=== PATIENT | male | born 1985 | race Caucasian/White ===

== ENCOUNTER 2017-01-21 13:33 | Emergency (ER) | payer OTHER ==
[2017-01-21 13:50] VITALS: BP 139/95
[2017-01-21] MEDS ORDERED: Iohexol 647 MG/ML 10 ML SDV PO SCH (14:15)
--- NOTE | 2017-01-21 14:36 | EDM.PDOC ---
[id number]: LEFT LOWER ABDOMINAL PAIN Time Seen by Provider: 01/21/17 14:00 Source of Information: Reports: Patient, Family History Limitations: Reports: No Limitations - History of Present Illness INITIAL COMMENTS - FREE TEXT/NARRATIVE: 31-year-old male with persistent and worsening waxing and waning left lower quadrant pain for the past 2 months. Today he was walking and was getting some cramping sensation, became lightheaded and diaphoretic. No fevers or chills, falls or moving normally, no nausea or vomiting. Last year he had a workup for persistent upper abdominal pain and was supposed to get an EGD and colonoscopy but his insurance changed and he never went through with the exams. He has apparent indication and his symptoms became bad enough that his insisted he get checked and he also became scared. Onset: Gradual Duration: Chronic (Over 2 months recurring left lower quadrant pain) Location: Reports: Abdomen Quality: Reports: Other (Intermittent cramping) Severity: Moderate Improves with: Reports: Other (Does not bother him at night) Associated Symptoms: Reports: Diaphoresis. Denies: Fever/Chills, Loss of Appetite, Nausea/Vomiting, Shortness of Breath Left Lower Abdominal Pain Score (Numeric/FACES): 5 - Related Data Allergies Allergy/AdvReac Type Severity Reaction Status Date / Time No Known Allergies Allergy Verified 01/21/17 13:51 Home Meds: Home Meds NK [No Known Home Meds] 01/21/17 [History] Past Medical History Gastrointestinal History: Reports: GERD Social & Family History - Tobacco Use Smoking Status *Q: Former Smoker Used Tobacco, but Quit: Yes Month Tobacco Last Used: 2 - Caffeine Use Caffeine Use: Reports: Coffee - Recreational Drug Use Recreational Drug Use: No ED ROS GENERAL - Review of Systems Review Of Systems: See Below Constitutional: Denies: Fever, Chills, Malaise HEENT: Reports: No Symptoms Respiratory: Denies: Shortness of Breath Cardiovascular: Denies: Chest Pain, Palpitations GI/Abdominal: Reports: Abdominal Pain. Denies: Nausea, Vomiting Skin: Reports: Diaphoresis Neurological: Reports: Dizziness ED EXAM, GI/ABD - Physical Exam Exam: See Below Exam Limited By: No Limitations General Appearance: Alert, No Apparent Distress Eyes: Bilateral: Normal Appearance (No jaundice) Respiratory/Chest: No Respiratory Distress, Lungs Clear Cardiovascular: Regular Rate, Rhythm GI/Abdominal: Soft, Tenderness (Patient does have significant palpation tenderness across the lower abdomen, particularly on the left side with some guarding) Extremities: Normal Inspection Neurological: Alert, Oriented Course - Vital Signs Last Recorded V/S: Last Vital Signs Temp 97.5 F 01/21/17 13:52 Pulse 66 01/21/17 13:52 Resp 16 01/21/17 13:52 BP 139/95 H 01/21/17 13:52 Pulse Ox 97 01/21/17 13:52 - Orders/Labs/Meds Orders: Active Orders 24 hr Category Date Time Status Abdomen Pelvis w Cont [CT] Stat Exams 01/21/17 14:13 Taken Labs: Laboratory Tests 01/21/17 01/21/17 Range/Units 14:13 14:13 WBC 8.2 (4.5-11.0) K/uL RBC 5.12 (4.30-5.90) M/uL Hgb 15.5 H (12.0-15.0) g/dL Hct 43.9 (40.0-54.0) % MCV 86 (80-98) fL MCH 30 (27-31) pg MCHC 35 (32-36) % Plt Count 189 (150-400) K/uL Neut % (Auto) 68 H (36-66) % Lymph % (Auto) 20 L (24-44) % [place] % (Auto) 9 H (2-6) % Eos % (Auto) 2 (2-4) % Baso % (Auto) 1 (0-1) % ESR 3 (0-20) mm/hr Sodium 141 (140-148) mmol/L Potassium 3.9 (3.6-5.2) mmol/L Chloride 105 (100-108) mmol/L Carbon Dioxide 28 (21-32) mmol/L Anion Gap 8.0 (5.0-14.0) mmol/L BUN 11 (7-18) mg/dL Creatinine 1.1 (0.8-1.3) mg/dL Est Cr Clr Drug Dosing 101.73 mL/min Estimated GFR (MDRD) > 60 (>60) Glucose 95 (74-106) mg/dL Calcium 8.9 (8.5-10.1) mg/dL Total Bilirubin 0.5 (0.2-1.0) mg/dL AST 32 (15-37) U/L ALT 61 (12-78) U/L Alkaline Phosphatase 101 (46-116) U/L Total Protein 7.2 (6.4-8.2) g/dL Albumin 3.9 (3.4-5.0) g/dL Globulin 3.3 (2.3-3.5) g/dL Albumin/Globulin Ratio 1.2 (1.2-2.2) Meds: Medications Discontinued Medications Generic Name Dose Route Start Last Admin Trade Name Freq PRN Reason Stop Dose Admin Sodium Chloride 80 mls @ 3 mls/sec 01/21/17 15:30 01/21/17 16:05 Normal Saline IV 3 mls/sec ASDIRECTED LEOLA Administration Iohexol 10 ml 01/21/17 14:15 01/21/17 14:29 Omnipaque-300 PO 10 ml . DIRECTED LELOA Administration Iopamidol 150 ml 01/21/17 15:30 01/21/17 16:05 Isovue-300 (61%) IV 150 ml . DIRECTED LEOLA Administration Sodium Chloride 10 ml 01/21/17 15:16 01/21/17 16:05 Saline Flush FLUSH 10 ml ASDIRECTED PRN Administration Keep Vein Open - Re-Assessments/Exams Free Text/Narrative Re-Assessment/Exam: 01/21/17 14:36 CBC CMP and sedimentation rate were obtained. I had the patient start drinking contrast with the intention of an abdomen and pelvis CT scan with oral and IV contrast. 01/21/17 16:05 CBC and CMP are normal, sedimentation rate is 3. Patient was sent for the CT of the abdomen and pelvis with IV and oral contrast. 01/21/17 16:53 CT scan was completely normal. All copies of everything was given to the patient and he can follow-up when home. Departure - Departure Time of Disposition: 17:02 Disposition: Home, Self-Care 01 Condition: Good Clinical Impression: Abdominal pain Qualifiers: Abdominal location: left lower quadrant Qualified Code(s): R10.32 - Left lower quadrant pain Acid reflux Qualifiers: Esophagitis presence: esophagitis presence not specified Qualified Code(s): K21.9 - Gastro-esophageal reflux disease without esophagitis - Discharge Information Instructions: Abdominal Pain, Adult Referrals: PCP,None [Primary Care Provider] - Forms: ED Department Discharge Care Plan Goals: Consider taking Prilosec daily as discussed. Recheck when home if symptoms aren' t improving satisfactorily. - My Orders Last 24 Hours: My Active Orders 01/21/17 14:13 Abdomen Pelvis w Cont [CT] Stat - Assessment/Plan Last 24 Hours: My Active Orders 01/21/17 14:13 Abdomen Pelvis w Cont [CT] Stat
[2017-01-21] MEDS ORDERED: Sodium Chloride 0.9% 10 ML Syringe FLUSH PRN (15:16)
[2017-01-21] MEDS ORDERED: Sodium Chloride 0.9% 80 ML IV SCH (15:30)
[2017-01-21] MEDS ORDERED: Iopamidol 612 MG/ML 150 ML Bottle IV SCH (15:30)
== END 2017-01-21 17:02 | disposition home or self-care (01) ==
LOC: JP.ED 13:33
DX: K21.9 Gastro-esophageal reflux disease without esophagitis (principal); Z87.891 Personal history of nicotine dependence
CPT/HCPCS: 36415; 74177; 80053; 85025; 85651; 99284; J7030; J7050